=== PATIENT | male | born 1975 ===

== ENCOUNTER → 2018-07-01 | Outpatient (CLI) | payer OTHER ==
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
== END | disposition home or self-care (01) ==
LOC: RAD 10:26
PROVIDERS: ATTEND Surgery
DX: M85.68 Other cyst of bone, other site (principal); M61.552 Other ossification of muscle, left thigh; Z87.81 Personal history of (healed) traumatic fracture
CPT/HCPCS: 73552; 73590